=== PATIENT | male | born 1950 | race Caucasian/White ===

== ENCOUNTER 2016-06-26 15:32 | Inpatient (IN) | payer OTHER ==
[~2016-06-26] VITALS: Ht 170.2 cm; Wt 112.4 kg
[~2016-06-26 15:32] MED LIST: ADVAIR 100/501 DISK IH; ANDRODERM1 EAC1 TD; ASPIRIN81 M1 PO; ASPIRIN81 M2 PO; ATIVAN1 MG PO; BENADRYL50 MG PO; BUDEPRION XL300 MG PO; BUPROPION HCL150 M2 PO; CARBIDOPA-LEVO1 EAC3 PO; CLONAZEPAM0.5 MG PO; CYMBALTA60 MG PO; DURAGESIC12 MCG TD; DURAGESIC25 MCG TD; FENTANYL1 EAC1 TD; FLOMAX0.4 MG PO; FLORINEF ACETA0.1 MG PO; FLOVENT DISKUS1 DIS2 IH; FLUOXETINE HCL10 MG PO; FLUOXETINE HCL20 MG PO; GABAPENTIN300 MG PO; GLYBURIDE5 MG PO; KEFLEX500 MG PO; LEVAQUIN750 MG PO; LEVOTHROID,SYN0.1 MG PO; LEVOTHYROXINE88 MCG PO; LORATADINE10 M2 PO; LOVASTATIN20 MG PO; LYRICA100 MG PO; LYRICA150 MG PO; LYRICA200 MG PO; MECLIZINE HCL25 MG PO; METFORMIN HCL500 MG PO; MICRONASE5 MG PO; MIRAPEX0.125 MG PO; MIRAPEX0.5 MG PO; MULTIVITAMIN1 EAC2 PO; NITROSTAT0.4 MG SL; OXYCODONE-APAP1 EACH PO; PERCOCET 5-3251 EACH PO; PERCOCET 5/31 TABLET PO; PRAMIPEXOLE D0.25 M1 PO; PRAMIPEXOLE DI0.5 MG PO; PRAVACHOL20 MG PO; PRAVACHOL40 MG PO; PRILOSEC40 MG PO; PROVENTIL,2.5 MG/3 M IH; RANITIDINE HCL150 M1 PO; RANITIDINE HCL300 MG PO; SENOKOT S,PE1 TABLET PO; SIMVASTATIN80 MG PO; TESSALON200 MG PO; THERAGRAN1 TABLET PO; TIZANIDINE HCL4 MG PO; TOPAMAX100 MG PO; TYLENOL EXTRA500 MG PO; VENTOLIN HFA18 GM IH; VITAMIN D2000 UNIT PO; VOLTAREN 1% GE100 GM PO; VOLTAREN 1% GE100 GM TP; [UNRECOGNIZED DRUG - SUPPLY] IH
[2016-06-26] MEDS ORDERED: OXYCODONE-ACET1 EACH PO (21:32)
[2016-06-26] MEDS ORDERED: GABAPENTIN400 MG PO (21:32)
[2016-06-26] MEDS ORDERED: GABAPENTIN800 MG PO (21:33)
[2016-06-26] MEDS ORDERED: RANITIDINE HCL150 MG PO (21:33)
[2016-06-26] MEDS ORDERED: SINEMET CR 25-1 EACH PO (21:34)
[2016-06-26] MEDS ORDERED: SYNTHROID100 MCG PO (21:34)
[2016-06-26] MEDS ORDERED: WELLBUTRIN XL300 MG PO (21:34)
[2016-06-26 22:40] VITALS: BP 164/81
[2016-06-27] VITALS: BP 155/78
[2016-06-27 00:07] LABS: POINT-OF-CARE METER ID UU13113831
[2016-06-27 08:10] LABS: POINT-OF-CARE METER ID UU13113700
[2016-06-27 09:25] VITALS: BP 139/83
[2016-06-27 13:08] VITALS: BP 140/75
[2016-06-27 16:33] VITALS: BP 130/84
[2016-06-27 18:27] LABS: POINT-OF-CARE METER ID UU13113831
[2016-06-27 19:43] VITALS: BP 111/67
[2016-06-27 21:37] LABS: POINT-OF-CARE METER ID UU13113831
[2016-06-28] VITALS (7 sets, daily range): BP systolic 94–168; BP diastolic 61–90
[2016-06-28 07:52] LABS: POINT-OF-CARE METER ID UU13113831
[2016-06-28 08:11] LABS: EOSINOPHIL (%) 1.4 % (0-5); EOSINOPHIL COUNT 0.1 K/uL (0-0.3); HEMATOCRIT 37.6 % (38.0-50.0); IMMATURE GRANULOCYTE (%) 0.3 % (0.0-0.7); MCH 28.1 PG (29.0-34.0); MCV 85.3 FL (86-99); MEAN PLAT.VOLUME 9.9 uM^3 (9.0-12.4); MONOCYTE (%) 10.4 % (3-12); MONOCYTE COUNT 0.9 K/uL (0-0.8); NEUTROPHIL (%) 52.6 % (45-76); NEUTROPHIL COUNT 4.5 K/uL (1.8-6.4); PLATELET COUNT 161 K/uL (156-360); RBC DIS.WIDTH-CV 12.5 % (11.8-14.6); RBC DIS.WIDTH-SD 38.6 % (39-53); RED BLOOD COUNT 4.41 M/uL (4.00-5.50); WHITE BLOOD COUNT 8.6 K/uL (4.1-10.2)
[2016-06-28 08:22] LABS: PROTHROMBIN TIME 10.2 (9.2-11.2); PTT 24.4 (25-32)
[2016-06-28 08:41] LABS: ANION GAP 6 MEQ/L (2-14); CHLORIDE 100 MEQ/L (99-109); GFR ESTIMATE (CALCULATED) > 59 mL/min/; GLUCOSE 204 mg/dL (70-99); POTASSIUM 5.3 MEQ/L (3.7-5.4); SAMPLE HEMOLYSIS CHECK 0; SAMPLE ICTERIC CHECK 0; SAMPLE LIPEMIA CHECK 0; SODIUM 137 MEQ/L (136-147); UREA NITROGEN (BUN) 20 mg/dL (9-23)
[2016-06-28 11:29] LABS: POINT-OF-CARE METER ID UU13113675
[2016-06-28 16:43] LABS: POINT-OF-CARE METER ID UU14188577
[2016-06-28 20:34] LABS: HEMATOCRIT 36.4 % (38.0-50.0); MCHC 35.2 G/DL (30.0-36.0); MCV 85.2 FL (86-99); MEAN PLAT.VOLUME 10.2 uM^3 (9.0-12.4); PLATELET COUNT 183 K/uL (156-360); RBC DIS.WIDTH-CV 12.4 % (11.8-14.6); RBC DIS.WIDTH-SD 38.3 % (39-53); RED BLOOD COUNT 4.27 M/uL (4.00-5.50); WHITE BLOOD COUNT 16.6 K/uL (4.1-10.2)
[2016-06-28 20:44] LABS: ALKALINE PHOSPHATASE 48 IU/L (3-129); ANION GAP 9 MEQ/L (2-14); CHLORIDE 96 MEQ/L (99-109); GFR ESTIMATE (CALCULATED) > 59 mL/min/; GLUCOSE 253 mg/dL (70-99); POTASSIUM 4.4 MEQ/L (3.7-5.4); SAMPLE HEMOLYSIS CHECK 0; SAMPLE ICTERIC CHECK 0; SAMPLE LIPEMIA CHECK 0; SODIUM 133 MEQ/L (136-147); TOTAL BILIRUBIN 0.7 MG/DL (0.0-1.0); UREA NITROGEN (BUN) 21 mg/dL (9-23)
[2016-06-28 20:48] LABS: TROP-I INTERPRETATION NEGATIVE; TROPONIN-I < 0.01 ng/mL (0.0-0.30)
[2016-06-28 22:22] LABS: POINT-OF-CARE METER ID UU14149397
[2016-06-29 01:13] LABS: ADD MIUA? YES; BILIRUBIN NEGATIVE; BLOOD SMALL; COLOR YELLOW ((YELLOW)); GLUCOSE (STRIP) >=500; KETONES 5; LEUKOCYTES NEGATIVE; NITRITE NEGATIVE; PROTEIN (STRIP) NEGATIVE; SPECIFIC GRAVITY 1.021 (1.000-1.030); UROBILINOGEN 0.2 MG/DL (0.2-1.0)
[2016-06-29 01:17] LABS: BACTERIA NONE SEEN /HPF; EPITHELIAL CELLS NONE SEEN /HPF; MUCUS NONE SEEN /LPF; RED BLOOD CELLS 0-5 /HPF (0-5); UCUL ADDED? NO; WHITE BLOOD CELLS 0-5 /HPF (0-5)
[2016-06-29 01:22] LABS: D-DIMER ELISA 0.81 mg/L FEU (< 0.57)
[2016-06-29 03:50] VITALS: BP 137/93
[2016-06-29 06:59] LABS: POINT-OF-CARE METER ID UU14188577
[2016-06-29 07:11] VITALS: BP 168/92
[2016-06-29 08:05] LABS: HEMATOCRIT 36.5 % (38.0-50.0); MCH 27.9 PG (29.0-34.0); MCHC 32.9 G/DL (30.0-36.0); MCV 84.9 FL (86-99); MEAN PLAT.VOLUME 10.1 uM^3 (9.0-12.4); PLATELET COUNT 195 K/uL (156-360); RBC DIS.WIDTH-CV 12.5 % (11.8-14.6); RBC DIS.WIDTH-SD 38.2 % (39-53); WHITE BLOOD COUNT 18.3 K/uL (4.1-10.2)
[2016-06-29 08:33] LABS: ANION GAP 9 MEQ/L (2-14); CHLORIDE 97 MEQ/L (99-109); GFR ESTIMATE (CALCULATED) > 59 mL/min/; GLUCOSE 262 mg/dL (70-99); POTASSIUM 4.2 MEQ/L (3.7-5.4); SAMPLE HEMOLYSIS CHECK 0; SAMPLE ICTERIC CHECK 0; SAMPLE LIPEMIA CHECK 0; SODIUM 134 MEQ/L (136-147); UREA NITROGEN (BUN) 19 mg/dL (9-23)
[2016-06-29 08:39] LABS: Estimated Average Glucose 212 mg/dL (70-123)
[2016-06-29 11:22] VITALS: BP 154/84
[2016-06-29 12:03] LABS: POINT-OF-CARE METER ID UU14149397; POINT-OF-CARE USER ID 606021404
[2016-06-29 15:46] VITALS: BP 166/82
[2016-06-29 17:25] LABS: POINT-OF-CARE USER ID 606021404
[2016-06-29 23:05] VITALS: BP 144/71
[2016-06-30 06:31] LABS: ANION GAP 7 MEQ/L (2-14); CHLORIDE 100 MEQ/L (99-109); GFR ESTIMATE (CALCULATED) > 59 mL/min/; GLUCOSE 252 mg/dL (70-99); POTASSIUM 3.9 MEQ/L (3.7-5.4); SAMPLE HEMOLYSIS CHECK 0; SAMPLE ICTERIC CHECK 0; SAMPLE LIPEMIA CHECK 0; SODIUM 134 MEQ/L (136-147); UREA NITROGEN (BUN) 14 mg/dL (9-23)
[2016-06-30 06:58] LABS: HEMATOCRIT 31.2 % (38.0-50.0); MCH 28.1 PG (29.0-34.0); MCHC 32.7 G/DL (30.0-36.0); RBC DIS.WIDTH-CV 12.5 % (11.8-14.6); RBC DIS.WIDTH-SD 39.1 % (39-53); RED BLOOD COUNT 3.63 M/uL (4.00-5.50)
[2016-06-30 07:47] LABS: PLATELET COUNT UNABLE TO REPORT K/uL (156-360)
[2016-06-30 07:48] VITALS: BP 126/66
[2016-06-30 08:04] LABS: MAGNESIUM 2.3 mg/dl (1.3-2.7)
[2016-06-30 11:50] LABS: POINT-OF-CARE METER ID UU14149397
[2016-06-30 15:52] VITALS: BP 116/64
[2016-06-30 16:48] LABS: POINT-OF-CARE METER ID UU14149397
[2016-06-30 22:12] LABS: POINT-OF-CARE METER ID UU14188577
[2016-07-01 00:31] VITALS: BP 153/81
[2016-07-01 03:15] LABS: POINT-OF-CARE METER ID UU14149397
[2016-07-01 06:02] LABS: GFR ESTIMATE (CALCULATED) > 59 mL/min/; UREA NITROGEN (BUN) 16 mg/dL (9-23)
[2016-07-01 07:34] VITALS: BP 115/65
[2016-07-01 12:06] LABS: POINT-OF-CARE METER ID UU14149397
[2016-07-01 15:37] VITALS: BP 124/67
[2016-07-01 17:05] LABS: POINT-OF-CARE METER ID UU14188577
[2016-07-01 21:24] LABS: POINT-OF-CARE METER ID UU14188577
[2016-07-01 22:53] VITALS: BP 123/73
[2016-07-02 05:31] LABS: HEMATOCRIT 31.4 % (38.0-50.0); MCH 27.7 PG (29.0-34.0); MCHC 31.8 G/DL (30.0-36.0); RBC DIS.WIDTH-CV 12.7 % (11.8-14.6); RBC DIS.WIDTH-SD 40.3 % (39-53); RED BLOOD COUNT 3.61 M/uL (4.00-5.50)
[2016-07-02 05:52] LABS: ANION GAP 8 MEQ/L (2-14); CHLORIDE 102 MEQ/L (99-109); GFR ESTIMATE (CALCULATED) > 59 mL/min/; GLUCOSE 160 mg/dL (70-99); POTASSIUM 4.5 MEQ/L (3.7-5.4); SAMPLE HEMOLYSIS CHECK 0; SAMPLE ICTERIC CHECK 0; SAMPLE LIPEMIA CHECK 0; SODIUM 137 MEQ/L (136-147); UREA NITROGEN (BUN) 19 mg/dL (9-23)
[2016-07-02 05:54] LABS: MEAN PLAT.VOLUME 9.5 uM^3 (9.0-12.4); PLATELET COUNT 201 K/uL (156-360)
[2016-07-02 08:09] VITALS: BP 104/56
[2016-07-02 11:42] VITALS: BP 134/70
[2016-07-02 11:55] LABS: POINT-OF-CARE METER ID UU14149397
[2016-07-02 16:00] VITALS: BP 146/78
[2016-07-02 16:57] LABS: POINT-OF-CARE METER ID UU14149397
[2016-07-03] VITALS: BP 112/58
[2016-07-03 03:36] VITALS: BP 138/75
[2016-07-03 06:25] LABS: POINT-OF-CARE METER ID UU14149397
[2016-07-03 08:00] VITALS: BP 116/66
[2016-07-03 09:13] LABS: HEMATOCRIT 30.4 % (38.0-50.0); MCH 29.5 PG (29.0-34.0); MCHC 33.9 G/DL (30.0-36.0); MCV 87.1 FL (86-99); MEAN PLAT.VOLUME 9.3 uM^3 (9.0-12.4); PLATELET COUNT 226 K/uL (156-360); RBC DIS.WIDTH-CV 12.5 % (11.8-14.6); RBC DIS.WIDTH-SD 39.6 % (39-53); RED BLOOD COUNT 3.49 M/uL (4.00-5.50)
[2016-07-03 09:40] LABS: ANION GAP 10 MEQ/L (2-14); CHLORIDE 100 MEQ/L (99-109); GFR ESTIMATE (CALCULATED) > 59 mL/min/; GLUCOSE 212 mg/dL (70-99); POTASSIUM 4.1 MEQ/L (3.7-5.4); SAMPLE HEMOLYSIS CHECK 0; SAMPLE ICTERIC CHECK 0; SAMPLE LIPEMIA CHECK 0; SODIUM 136 MEQ/L (136-147); UREA NITROGEN (BUN) 18 mg/dL (9-23)
[2016-07-03] MEDS ORDERED: TIZANIDINE HCL4 MG PO (11:01)
[2016-07-03] MEDS ORDERED: ASPIR-LOW81 MG PO (11:02)
[2016-07-03] MEDS ORDERED: MOTRIN600 MG PO (11:02)
[2016-07-03] MEDS ORDERED: DOCUSATE SODIU100 MG PO (11:04)
[2016-07-03] MEDS ORDERED: MILK OF MAGNESI10 ML PO (11:04)
[2016-07-03] MEDS ORDERED: METOCLOPRAMIDE10 MG PO (11:04)
[2016-07-03] MEDS ORDERED: ONDANSETRON ODT4 MG PO (11:05)
[2016-07-03] MEDS ORDERED: OXYCODONE-APAP1 EACH PO (11:07)
[2016-07-03] MEDS ORDERED: OXYCONTIN10 MG PO (11:07)
[2016-07-03 12:00] VITALS: BP 147/80
== END 2016-07-03 13:09 | DRG 501 ==
LOC: EME 15:32 → EDOF 21:07 → 5WEST 21:07 → EDOF 21:07 → 5WEST 22:26 → 3EAST 06-27 22:43 → 5WEST 06-27 22:43 → 3EAST 06-28 14:32
PROVIDERS: Anesthesiology; Hospitalist; Internal Medicine; Physician Assistant
DX: S76.119A Strain of unspecified quadriceps muscle, fascia and tendon, initial encounter (principal); F33.9 Major depressive disorder, recurrent, unspecified; F11.20 Opioid dependence, uncomplicated; E11.65 Type 2 diabetes mellitus with hyperglycemia; Z99.81 Dependence on supplemental oxygen; S76.101A Unspecified injury of right quadriceps muscle, fascia and tendon, initial encounter; S76.102A Unspecified injury of left quadriceps muscle, fascia and tendon, initial encounter; W01.0XXA Fall on same level from slipping, tripping and stumbling without subsequent striking against object, initial encounter; J44.9 Chronic obstructive pulmonary disease, unspecified; G89.4 Chronic pain syndrome; W10.9XXA Fall (on) (from) unspecified stairs and steps, initial encounter; I10 Essential (primary) hypertension; E78.5 Hyperlipidemia, unspecified; K21.9 Gastro-esophageal reflux disease without esophagitis; E03.9 Hypothyroidism, unspecified; F41.9 Anxiety disorder, unspecified; Z68.36 Body mass index [BMI] 36.0-36.9, adult; G20 Parkinson's disease
CPT/HCPCS: 71275; 73502; 73560; 73564; 73721; 76000; 80048; 80053; 81003; 82565; 82948; 83036; 83605; 83735; 84443; 84484; 84520; 85025; 85027; 85379; 85610; 85730; 86850; 86900; 86901; 87040; 93005; 94640; 94640 76; 97530 GO; 97530 GP; 99281; 99285; C1713; G0378; J0131; J0690; J1170; J1200; J1650; J1815; J1885; J2250; J2405; J3010; J7030; J7040

== ENCOUNTER 2017-06-18 14:16 | Emergency (ER) | payer OTHER ==
[~2017-06-18] VITALS: Ht 177.8 cm; Wt 96.8 kg
[~2017-06-18 14:16] MED LIST changes: +ASPIR-LOW81 MG PO; +DOCUSATE SODIU100 MG PO; +GABAPENTIN400 MG PO; +GABAPENTIN800 MG PO; +METOCLOPRAMIDE10 MG PO; +MILK OF MAGNESI10 ML PO; +MOTRIN600 MG PO; +ONDANSETRON ODT4 MG PO; +OXYCODONE-ACET1 EACH PO; +OXYCONTIN10 MG PO; +RANITIDINE HCL150 MG PO; +SINEMET CR 25-1 EACH PO; +SYNTHROID100 MCG PO; +WELLBUTRIN XL300 MG PO
[2017-06-18 15:18] LABS: BASOPHIL (%) 0.3 % (0-1); EOSINOPHIL (%) 0 % (0-5); HEMATOCRIT 44.3 % (38.0-50.0); HEMOGLOBIN 15.5 G/DL (12.5-16.6); IMMATURE GRANULOCYTE (%) 0.3 % (0.0-0.7); LYMPHOCYTE (%) 13.6 % (15-42); LYMPHOCYTE COUNT 1.1 K/uL (1.0-2.8); MCH 29.7 PG (29.0-34.0); MCV 84.9 FL (86-99); MONOCYTE (%) 9.7 % (3-12); MONOCYTE COUNT 0.8 K/uL (0-0.8); NEUTROPHIL (%) 76.1 % (45-76); NEUTROPHIL COUNT 6.1 K/uL (1.8-6.4); PLATELET COUNT 161 K/uL (156-360); RBC DIS.WIDTH-CV 11.8 % (11.8-14.6); RBC DIS.WIDTH-SD 35.8 % (39-53); RED BLOOD COUNT 5.22 M/uL (4.00-5.50)
[2017-06-18 15:26] LABS: ALBUMIN 4.4 g/dL (3.2-4.8); CHLORIDE 98 mEq/L (99-109); POTASSIUM 3.7 mEq/L (3.7-5.4); SODIUM 135 mEq/L (136-147)
[2017-06-18 15:28] LABS: GLUCOSE 207 mg/dL (70-99)
[2017-06-18 15:30] LABS: TOTAL BILIRUBIN 0.5 mg/dL (0.0-1.0)
[2017-06-18 15:32] LABS: ALKALINE PHOSPHATASE 72 IU/L (3-129); GFR ESTIMATE (CALCULATED) > 59 mL/min/ (58.99-99999)
[2017-06-18 15:33] LABS: UREA NITROGEN (BUN) 12 mg/dL (9-23)
[2017-06-18 15:34] LABS: AST (GOT) 26 IU/L (2-34)
[2017-06-18 15:35] LABS: ALT (GPT) 35 IU/L (3-49); LIPASE 33 U/L (1.0-51.0)
[2017-06-18 15:38] LABS: TROP-I INTERPRETATION NEGATIVE; TROPONIN-I < 0.01 ng/mL (0.0-0.30)
[2017-06-18 18:06] LABS: APPEARANCE CLEAR ((CLEAR)); BILIRUBIN NEGATIVE; BLOOD SMALL; COLOR STRAW ((YELLOW)); GLUCOSE (STRIP) NEGATIVE; KETONES NEGATIVE; LEUKOCYTES NEGATIVE; NITRITE NEGATIVE; PROTEIN (STRIP) NEGATIVE; SPECIFIC GRAVITY 1.032 (1.000-1.030); UROBILINOGEN 0.2 MG/DL (0.2-1.0)
[2017-06-18 18:10] LABS: BACTERIA NONE SEEN /HPF; EPITHELIAL CELLS NONE SEEN /HPF; MUCUS NONE SEEN /LPF; RED BLOOD CELLS 0-5 /HPF (0-5); UCUL ADDED? NO; WHITE BLOOD CELLS 0-5 /HPF (0-5)
[2017-06-18] MEDS ORDERED: LEVAQUIN750 MG PO (18:53)
[2017-06-18 19:22] VITALS: BP 149/84
== END 2017-06-18 19:22 | disposition home or self-care (01) ==
LOC: EME 14:16
PROVIDERS: Emergency Medicine
DX: J18.9 Pneumonia, unspecified organism (principal); J44.0 Chronic obstructive pulmonary disease with (acute) lower respiratory infection; R19.7 Diarrhea, unspecified; R51 Headache; R32 Unspecified urinary incontinence; R00.0 Tachycardia, unspecified; I10 Essential (primary) hypertension; E03.9 Hypothyroidism, unspecified; E11.9 Type 2 diabetes mellitus without complications; Z79.84 Long term (current) use of oral hypoglycemic drugs
CPT/HCPCS: 70450; 71046; 74177; 80053; 81003; 83605; 83690; 84484; 85025; 87040; 87086; 93005; 99281; 99285; J7030